=== PATIENT | male | born 1990 | race Caucasian/White ===

== ENCOUNTER 2020-04-09 09:46 | Outpatient (REF) | payer OTHER, SELFPAY ==
[2020-04-09 11:15] LABS: MANUAL DIFF FLAG NO
[2020-04-09 11:38] LABS: Basophils Percent Auto 0.7 % (0-2); Eosinophils Absolute Auto 0.1 X10*3/uL (0.0-0.4); Eosinophils Percent Auto 1.1 % (0-4); Hematocrit 45.3 % (42-52); Imm Gran Abs Auto 0.01 X10*3/uL (0.00-0.03); Imm Gran Pct Auto 0.2 % (0.0-0.4); Lymphocytes Absolute Auto 1.1 X10*3/uL (1.2-4.9); Lymphocytes Percent Auto 19.4 % (20-40); Mean Corpuscular HGB Conc 33.1 g/dl (31.0-36.0); Mean Corpuscular Hemoglobin 29.9 pg (27.0-33.0); Mean Corpuscular Volume 90.2 fL (80-98); Mean Platelet Volume 11.4 fL (9.4-12.4); Monocytes Absolute Auto 0.5 X10*3/uL (0.1-1.2); Monocytes Percent Auto 8.8 % (2-11); Neutrophils Absolute Auto 3.8 X10*3/uL (2.0-8.3); Neutrophils Percent Auto 69.8 % (45-73); Platelet Count 221 X10*3/uL (160-400); Red Blood Count 5.02 X10*6/uL (4.60-5.80); Red Cell Distribution Width 12.1 % (11.0-16.0); White Blood Count 5.5 X10*3/uL (4.8-10.8)
[2020-04-09 11:49] LABS: Alanine Aminotransferase 37 U/L (0-40); Albumin Level 4.6 g/dL (3.5-5.0); Alkaline Phosphatase 41 U/L (39-117); Anion Gap 13 (12-20); Aspartate Amino Transferase 35 U/L (5-37); Bilirubin Total 0.5 mg/dL (0.0-1.0); Blood Urea Nitrogen 16 mg/dL (9-16); Calcium 9.2 mg/dL (8.4-10.2); Carbon Dioxide 29 mmol/L (22-29); Chloride 103 mmol/L (96-108); Cholesterol 210 mg/dL; Estimated Glomerular Filt Rate > 60; Glucose Fasting 97 mg/dL (60-99); HDL Cholesterol 65 mg/dL; Iron 71 mcg/dL (45-160); LDL Cholesterol Calculated 135 mg/dl; Percent Iron Saturation 24 % (15-50); Sodium 140 mmol/L (135-145); Total Iron Binding Capacity 290 mcg/dL (228-428); Total Protein 7.2 g/dL (6.5-8.0); Triglycerides 51 mg/dL; Unsaturated Iron Binding 219 ug/dL
[2020-04-09 12:12] LABS: HBS Num1 72.17 mIU/mL (0-7.99); HBc Num1 0.19 S/CO (0.00-0.79); HIV AB/AG Nonreactive (Nonreactive); HIV Num 1 0.09 S/CO (0.00-0.99); Hepatitis B Core Antibody Nonreactive (Nonreactive); ~HepC Num1 0.12 S/CO (0.00-0.79); ~Hepatitis B Surface Antibody REACTIVE (Nonreactive); ~Hepatitis C Antibody Nonreactive (Nonreactive)
[2020-04-09 12:13] LABS: Syphilis Screen Nonreactive (Nonreactive)
[2020-04-09 12:14] LABS: TSH reflex Free T4 1.27 mIU/mL (0.32-4.0)
[2020-04-09 12:30] LABS: Folate > 20.0 ng/mL (> or = 4.0); Vitamin B12 972 pg/mL (200-900)
[2020-04-09 12:31] LABS: HBsAGNum1 0.31 S/CO (0.00-0.99); Hepatitis B Surface Antigen Negative (Negative)
== END 2020-04-09 09:47 | disposition home or self-care (01) ==
LOC: HO.LAB 09:46
PROVIDERS: PCP Physician Assistant; Visit Provider Physician Assistant
DX: D50.9 Iron deficiency anemia, unspecified (principal); Z11.3 Encounter for screening for infections with a predominantly sexual mode of transmission; Z13.29 Encounter for screening for other suspected endocrine disorder; Z13.1 Encounter for screening for diabetes mellitus; Z13.220 Encounter for screening for lipoid disorders; Z13.0 Encounter for screening for diseases of the blood and blood-forming organs and certain disorders involving the immune mechanism
CPT/HCPCS: 36415; 80053; 80061; 82607; 82746; 83540; 84443; 85025; 86704; 86706; 86780; 86803; 87340; 87389

== ENCOUNTER 2021-08-01 12:54 | Emergency (ER) | payer OTHER, SELFPAY ==
--- NOTE | 2021-08-01 | ECG_ITS ---
Test Reason : CHEST PAIN Blood Pressure : / mmHG Vent. Rate : 070 BPM Atrial Rate : 070 BPM P-R Int : 156 ms QRS Dur : 098 ms QT Int : 338 ms P-R-T Axes : 067 041 014 degrees QTc Int : 365 ms Normal sinus rhythm Normal ECG No previous ECGs available Referred By: Generic ED Physician Electronically Signed By:Asael Arzate
--- NOTE | ~2021-08-01 | XR_ITS ---
EXAMINATION: XR CHEST CLINICAL INFORMATION: Chest pain COMPARISON: None TECHNIQUE: 2 views of the chest were obtained. FINDINGS: Lungs are well-inflated and clear. Trachea is midline in position. No interstitial disease, consolidation or mass. No pleural effusion or pneumothorax. Cardiac silhouette and pulmonary vessels are normal in size. The mediastinum and nicole have normal contour. The visualized bones and upper abdomen are unremarkable. XR/XR chest 2V IMPRESSION: No acute cardiopulmonary abnormality.
[2021-08-01 13:01] VITALS: BP 127/67; PULSE 80; RESP 16; TEMP 36.5; O2SAT 97; BMI 25.7
[2021-08-01 13:20] LABS: MANUAL DIFF FLAG NO
[2021-08-01 13:30] LABS: Eosinophils Absolute Auto 0.1 X10*3/uL (0.0-0.4); Eosinophils Percent Auto 3.1 % (0-4); Hematocrit 43.9 % (42.0-52.0); Imm Gran Abs Auto 0.01 X10*3/uL (0.00-0.03); Imm Gran Pct Auto 0.2 % (0.0-0.4); Lymphocytes Absolute Auto 1.1 X10*3/uL (1.2-4.9); Lymphocytes Percent Auto 26.8 % (20-40); Mean Corpuscular HGB Conc 34.2 g/dl (31.0-36.0); Mean Corpuscular Hemoglobin 29.9 pg (27.0-33.0); Mean Corpuscular Volume 87.5 fL (80.0-98.0); Mean Platelet Volume 10.3 fL (9.4-12.4); Monocytes Absolute Auto 0.4 X10*3/uL (0.1-1.2); Monocytes Percent Auto 8.9 % (2-11); Neutrophils Absolute Auto 2.5 x10*3/uL (2.0-8.3); Platelet Count 195 X10*3/uL (160-400); Red Blood Count 5.02 X10*6/uL (4.60-5.80); Red Cell Distribution Width 12.1 % (11.0-16.0); White Blood Count 4.2 X10*3/uL (4.8-10.8)
[2021-08-01 13:39] LABS: D Dimer High Sensitivity < 150 NG/ML
[2021-08-01 13:40] LABS: Anion Gap 11 (12-20); Blood Urea Nitrogen 18 mg/dL (9-16); Calcium 9.4 mg/dL (8.4-10.2); Carbon Dioxide 24 mmol/L (22-29); Chloride 106 mmol/L (96-108); Creatinine Clr Calc Pharmacy 105.5; Estimated Glomerular Filt Rate > 60; Glucose Random 90 mg/dL (60-115); Potassium 4.4 mmol/L (3.3-5.1); Sodium 137 mmol/L (135-145)
[2021-08-01 13:48] LABS: Troponin-I High Sensitivity < 3.5 ng/L (<3.5-35.0)
--- NOTE | 2021-08-01 16:14 | ED_ITS ---
HPI - Chest Pain General Chief Complaint: Chest Pain Stated Complaint: chest pains Source: patient Mode of arrival: ambulatory Limitations: no limitations History of Present Illness HPI narrative: 30-year-old male presents with 2 weeks of mid substernal chest pain radiating to the left chest wall. States that pain increases on inspiration, with stretching and with weightlifting. Stated that he felt ill for a few days prior to the chest pain. Illness has resolved however he remains fatigued with this intermit tent pain. MD complaint: chest pain Onset (ago): week(s) (2) Timing of current episode: episodic Prior episodes: No Onset: during rest and during exertion Pain location: substernal and left chest Pain radiation: none Severity: moderate Pain scale (0-10): 6 Quality: tightness, aching, sharp and burning Relieving factors: nothing Exacerbating factors: exertion, inspiration, palpation and movement Context: recent illness Associated symptoms: dyspnea Treatment prior to arrival: none Risk Factors Coronary artery disease risk factors: none Thoracic aortic dissection risk factors: connective tissue disease (arotitis) Related Data Home Medications Medication Instructions Recorded Confirmed No Known Home Meds 05/19/21 05/19/21 Previous Rx's Medication Instructions Recorded hydrocortisone valerate 0.2 % 1 appl TOPICAL BID PRN 15 Days #45 05/19/21 topical cream g Allergies Allergy/AdvReac Type Severity Reaction Status Date / Time No Known Allergies Allergy Verified 05/19/21 08:18 [No Known Allergies*] Review of Systems Review of Systems: Constitutional: No Weight loss, No Fever, No Chills, No Night Sweats, No Fatigue, No Malaise ENT/Mouth: No Hearing loss, No Ear Pain, No Nasal Congestion, No Sinus Pain, No Hoarseness, No sore throat, No Rhinorrhea, No Swallowing Difficulty Eyes: No Eye Pain, No Swelling, No Redness, No Foreign Body, No Discharge, No Vision Changes Cardiovascular: pos Chest Pain, pos SOB, no Dyspnea on Exertion, No Orthopnea, No Edema, No Palpitations Respiratory: No Cough, No Sputum, No Wheezing, No Smoke Exposure, No Dyspnea Gastrointestinal: No Nausea, No Vomiting, No Diarrhea, No abdominal Pain, No Hematochezia, No Melena Genitourinary: No irregular bleeding, No Dysuria, No Urinary Frequency, No Hematuria, No Urinary Incontinence, No Urgency, No Flank Pain, No Urinary Flow Changes, No Hesitancy Musculoskeletal: No joint pain, No Myalgias, No Joint Swelling Skin: No Skin Lesions, No rash Neuro: No Weakness, No Numbness, No Paresthesias, No Loss of Consciousness, No Dizziness, No Headache Psych: No Anxiety/Panic, No Depression, No SI/HI/AH/VH Heme/Lymph: No Bruising, No Bleeding,No Lymphadenopathy Endocrine: No Polyuria, No Polydipsia, No Temperature Intolerance Yes all other systems are reviewed and are negative [facility] Past Medical History Attestation statement: The following information was validated with the patient. Source: old records reviewed Medical History Tricuspid regurgitation Family History Family History Father No problems noted. Mother Substance use disorder Social History Social History Housing: Apartment Alcohol intake: current Alcohol intake frequency: a few times a month Alcohol type: wine Patient Tobacco Use Status: Never used Tobacco e-Cigarette/Vaping Use: Never Used Second Hand Smoke Exposure: No Substance Use Type: Marijuana Advance Directives: No Advance Directives Information Provided: No service: No Current occupational status: employed Current occupation: Student [employer] Current occupational exposures/hazards: No Physical Exam Vital Signs: Vital Signs: Last Vital Signs Temp 97.7 F 08/01/21 13:01 Pulse 71 08/01/21 17:22 Resp 18 08/01/21 17:22 BP 121/73 08/01/21 17:22 Pulse Ox 97 08/01/21 17:22 BMI result Body Mass Index 25.7 Appearance: Alert. Oriented X3. No acute distress. Eyes: Pupils equal, round and reactive to light. Sclera nonicteric. ENT: Pharynx normal. Moist mucous membranes. Neck: Normal inspection. Neck supple. CVS: Normal heart rate and rhythm. Apical pulse equal to pulses to extremities. S1-S2. No murmurs gallops or rubs. Reproducible chest pain to palpation to the left sternal wall midclavicular line. Respiratory: No respiratory distress. Lung sounds clear to auscultation all lobes. Abdomen: Soft and nontender. No CVA tenderness. Skin: Skin warm and dry. Normal skin color. Normal skin turgor. Extremities: No lower extremity edema. Strength 5/5 to all extremities. Gait well-balanced well coordinated. Neuro: No motor deficit. No sensory deficit. Cranial nerves 2-12 intact. Course Course Course Narrative: 30-year-old male presents with 2 weeks of chest pain, shortness breath, fatigue. Pain is reproducible, started after a mild illness that had resolved however the intermittent chest pain still remains. Labs drawn while patient was in the emergency department waiting room. Unremarkable. EKG normal sinus. Chest x-ray is negative. D-dimer is negative. Will add on COVID and influenza screen. 1705 COVID influenza negative. Plan of care is for patient to follow-up with his primary care physician for suspected costochondritis versus musculoskeletal strain. Patient verbalized understanding of and agrees to plan of care to discharge home. Verbalized understanding of signs and symptoms indicating need for emergent intervention MDM - Chest Pain Differential Diagnosis Differential diagnosis: Likely fracture of rib, pneumothorax, stable angina, unstable angina pectoris, atypical chest pain, st elevation myocardial infarction, costochondritis and chest pain Medical Records Data Attestation: I reviewed the patient's medical records. Lab Data Attestation: I reviewed the patient's lab results. Result diagrams: 08/01/21 13:17 08/01/21 13:17 Labs: Lab Results 08/01/21 08/01/21 08/01/21 Range/Units 13:16 13:17 13:17 WBC 4.2 L (4.8-10.8) X10*3/uL RBC 5.02 (4.60-5.80) X10*6/uL Hgb 15.0 (14.0-18.0) g/dl Hct 43.9 (42.0-52.0) % MCV 87.5 (80.0-98.0) fL MCH 29.9 (27.0-33.0) pg MCHC 34.2 (31.0-36.0) g/dl RDW 12.1 (11.0-16.0) % Plt Count 195 (160-400) X10*3/uL MPV 10.3 (9.4-12.4) fL Immature Gran % (Auto) 0.2 (0.0-0.4) % Neut % (Auto) 60.0 (45-73) % Lymph % (Auto) 26.8 (20-40) % Kidder % (Auto) 8.9 (2-11) % Eos % (Auto) 3.1 (0-4) % Baso % (Auto) 1.0 (0-2) % Lymph # (Auto) 1.1 L (1.2-4.9) X10*3/uL Kidder # (Auto) 0.4 (0.1-1.2) X10*3/uL Eos # (Auto) 0.1 (0.0-0.4) X10*3/uL Baso # (Auto) 0.0 (0.0-0.2) X10*3/uL Abs Immat Gran (auto) 0.01 (0.00-0.03) X10*3/uL Absolute Neuts (auto) 2.5 (2.0-8.3) x10*3/uL Absolute Nucleated RBC 0.000 (0.0-0.012) X10*3/uL Nucleated RBC % (auto) 0.0 (0.0-0.2) /100WBC D-Dimer High Sensitivty < 150 NG/ML Sodium (135-145) mmol/L Potassium (3.3-5.1) mmol/L Chloride (96-108) mmol/L Carbon Dioxide (22-29) mmol/L Anion Gap (12-20) BUN (9-16) mg/dL Creatinine (0.5-1.4) mg/dL Estim Creat Clear Calc Estimated GFR Random Glucose (60-115) mg/dL Calcium (8.4-10.2) mg/dL Troponin I High Sens < 3.5 (<3.5-35.0) ng/L COVID-19 (LYNN) (Negative) COVID-19 Clin Com Influenza Type A (NABILA) (Negative) Influenza Type B (NABILA) (Negative) Influenza A & B Note 08/01/21 08/01/21 08/01/21 Range/Units 13:17 16:27 16:27 WBC (4.8-10.8) X10*3/uL RBC (4.60-5.80) X10*6/uL Hgb (14.0-18.0) g/dl Hct (42.0-52.0) % MCV (80.0-98.0) fL MCH (27.0-33.0) pg MCHC (31.0-36.0) g/dl RDW (11.0-16.0) % Plt Count (160-400) X10*3/uL MPV (9.4-12.4) fL Immature Gran % (Auto) (0.0-0.4) % Neut % (Auto) (45-73) % Lymph % (Auto) (20-40) % Kidder % (Auto) (2-11) % Eos % (Auto) (0-4) % Baso % (Auto) (0-2) % Lymph # (Auto) (1.2-4.9) X10*3/uL Kidder # (Auto) (0.1-1.2) X10*3/uL Eos # (Auto) (0.0-0.4) X10*3/uL Baso # (Auto) (0.0-0.2) X10*3/uL Abs Immat Gran (auto) (0.00-0.03) X10*3/uL Absolute Neuts (auto) (2.0-8.3) x10*3/uL Absolute Nucleated RBC (0.0-0.012) X10*3/uL Nucleated RBC % (auto) (0.0-0.2) /100WBC D-Dimer High Sensitivty NG/ML Sodium 137 (135-145) mmol/L Potassium 4.4 (3.3-5.1) mmol/L Chloride 106 (96-108) mmol/L Carbon Dioxide 24 (22-29) mmol/L Anion Gap 11 L (12-20) BUN 18 H (9-16) mg/dL Creatinine 1.07 (0.5-1.4) mg/dL Estim Creat Clear Calc 105.5 Estimated GFR > 60 Random Glucose 90 (60-115) mg/dL Calcium 9.4 (8.4-10.2) mg/dL Troponin I High Sens (<3.5-35.0) ng/L COVID-19 (LYNN) Negative (Negative) COVID-19 Clin Com See Note Influenza Type A (NABILA) Negative (Negative) Influenza Type B (NABILA) Negative (Negative) Influenza A & B Note See Note Imaging Data Chest x-ray: Attestation: I personally reviewed and interpreted this imaging study as follows: Radiologist's impression: EXAMINATION: XR CHEST CLINICAL INFORMATION: Chest pain COMPARISON: None TECHNIQUE: 2 views of the chest were obtained. FINDINGS: Lungs are well-inflated and clear. Trachea is midline in position. No interstitial disease, consolidation or mass. No pleural effusion or pneumothorax.? Cardiac silhouette and pulmonary vessels are normal in size. The mediastinum and nicole have normal contour. The visualized bones and upper abdomen are unremarkable. XR/XR chest 2V IMPRESSION: No acute cardiopulmonary abnormality. ? ECG Data ECG #1: Attestation: I personally reviewed and interpreted this ECG as follows: ECG interpretation date: 08/01/21 ECG interpretation time: 13:03 Prior ECG tracings: not available for review Interpretation: Vent. rate 70 BPM CA interval 156 ms QRS duration 98 ms QT/QTc 338/365 ms P-R-T axes 67 41 14 Normal sinus rhythm Normal ECG No previous ECGs available Discharge Plan Discharge Clinical Impression: Atypical chest pain, Costalchondritis Patient Disposition: Home, Self-Care Instructions: Costochondritis (ED), Noncardiac Chest Pain (ED) Additional Instructions: You were evaluated for 2 weeks of chest pain and fatigue. Lab values are within normal limits. EKG is normal sinus. D-dimer is negative. Cardiac enzymes are negative. COVID and influenza tests are negative. This could be costochondritis versus musculoskeletal strain. Please use ibuprofen as needed for pain management. Follow-up with primary care physician this week for further evaluation Thank you for choosing this emergency department for evaluation. Please follow-up with primary care physician as needed. Return to the emergency department for any new, concerning, or worsening symptoms. Prescriptions: No Action No Known Home Meds 0RF hydrocortisone valerate 0.2 % cream 1 appl topical BID PRN (Reason: skin irritation) 15 Days Qty: 45 0RF Referrals: Junior Harrington PA-C [Primary Care Provider] - Interventions: ED Discharge Assessment Last Done: 08/01/21 17:24 Discharge Date/Time: 08/01/21 17:25
[2021-08-01 16:50] LABS: COVID-19 Test Negative (Negative)
[2021-08-01 16:51] LABS: IDNOW Serial# 16C4AD1C; Influenza A Negative (Negative); Influenza B2 Negative (Negative)
[2021-08-01 17:22] VITALS: BP 121/73; PULSE 71; RESP 18; O2SAT 97
== END 2021-08-01 17:25 | disposition home or self-care (01) ==
PROVIDERS: Nurse Practitioner Family; Emergency Provider Internal Medicine; PCP Physician Assistant
DX: M94.0 Chondrocostal junction syndrome [Tietze] (principal); R07.89 Other chest pain; Z20.822 Contact with and (suspected) exposure to COVID-19
CPT/HCPCS: 36415; 71046; 80048; 84484; 85025; 85379; 87502; 87635; 93005; 99283; 99284

== ENCOUNTER 2021-11-30 10:00 | Emergency (ER) | payer OTHER, SELFPAY ==
[2021-11-30 10:04] VITALS: BP 127/68; PULSE 65; RESP 16; TEMP 36.8; O2SAT 99; BMI 26.5
--- NOTE | 2021-11-30 10:28 | ED_ITS ---
HPI - Nausea/Vomiting/Diarrhea General Chief complaint: Nausea/Vomiting/Diarrhea Stated complaint: Abd pain Time Seen by Provider: 11/30/21 10:13 Source: patient Mode of arrival: ambulatory Limitations: no limitations History of Present Illness HPI Narrative: Abdominal pain and diarrhea for 2 months. No fever, unclear if it is related to diet. Soft watery, 3 times a day, question of blood. No prior issues has not been worked up. Patient works weekdays and he is here for that reason today. MD elicited complaint: diarrhea and abdominal pain Onset (ago): month(s) Description of diarrhea: watery and semi-solid Associated nausea: No Associated abdominal pain: Yes Location of pain: epigastric Severity: mild Quality: sharp Exacerbating factors: eating Associated symptoms: denies other symptoms Related Data Previous Rx's Medication Instructions Recorded hydrocortisone valerate 0.2 % 1 appl topical BID PRN skin 05/19/21 topical cream irritation 15 days #45 grams levofloxacin 750 mg tablet 750 mg PO DAILY #3 tabs 11/30/21 Allergies Allergy/AdvReac Type Severity Reaction Status Date / Time No Known Allergies Allergy Verified 05/19/21 08:18 [No Known Allergies*] Review of Systems Constitutional: Constitutional: Reports no additional constitutional co mplaints Eyes: Eyes: Reports no additional eye complaints ENT: Denies dizziness Cardiovascular: Cardiovascular: Reports no additional cardiovascular complaints Respiratory: Respiratory: Reports as per HPI Gastrointestinal: Gastrointestinal: Denies nausea Musculoskeletal: Musculoskeletal: Reports no additional musculoskeletal complaints Integumentary/Breasts: Skin/Breast: Denies rash Neurologic: Reports system reviewed and no additional complaints, except as documented, Denies dizziness and Denies Sensory deficit (Neuro) Psychiatric: Psychiatric: Denies anxiety [facility] Past Medical History Medical History Tricuspid regurgitation Family History Family History Father No problems noted. Mother Substance use disorder Social History Social History Housing: Apartment Alcohol intake: current Alcohol intake frequency: holidays/special occasions only Alcohol type: wine Patient Tobacco Use Status: Never used Tobacco e-Cigarette/Vaping Use: Never Used Second Hand Smoke Exposure: No Use of substances other than those prescribed or required for medical reasons: No Substance Use Type: Marijuana Advance Directives: No Advance Directives Information Provided: No service: No Current occupational status: employed Current occupation: Student [employer] Current occupational exposures/hazards: No Physical Exam Vital Signs: Vital Signs: Last Vital Signs Temp 98.2 F 11/30/21 12:59 Pulse 65 11/30/21 12:59 Resp 16 11/30/21 12:59 BP 114/68 11/30/21 12:59 Pulse Ox 97 11/30/21 12:59 O2 Del Method 11/30/21 12:59 BMI result Body Mass Index 26.5 Neuro: Sensory Exam: No Sensory deficit (Neuro) Course Reevaluation(s) Reevaluation #1: GI panel positive for Enteropathogenic Ecoli. Since the patient has had diarrhea for so long I will treat him with levaquin Time: 13:39 MDM - Nausea/Vomiting/Diarrhea Lab Data Result diagrams: 11/30/21 11:05 11/30/21 11:05 Labs: Lab Results 11/30/21 11/30/21 11/30/21 Range/Units 11:01 11:05 11:05 WBC 4.7 L (4.8-10.8) X10*3/uL RBC 5.14 (4.60-5.80) X10*6/uL Hgb 15.2 (14.0-18.0) g/dl Hct 44.9 (42.0-52.0) % MCV 87.4 (80.0-98.0) fL MCH 29.6 (27.0-33.0) pg MCHC 33.9 (31.0-36.0) g/dl RDW 11.9 (11.0-16.0) % Plt Count 181 (160-400) X10*3/uL MPV 10.6 (9.4-12.4) fL Immature Gran % (Auto) 0.2 (0.0-0.4) % Neut % (Auto) 66.7 (45-73) % Lymph % (Auto) 22.2 (20-40) % Dubois % (Auto) 7.7 (2-11) % Eos % (Auto) 1.9 (0-4) % Baso % (Auto) 1.3 (0-2) % Lymph # (Auto) 1.0 L (1.2-4.9) X10*3/uL Dubois # (Auto) 0.4 (0.1-1.2) X10*3/uL Eos # (Auto) 0.1 (0.0-0.4) X10*3/uL Baso # (Auto) 0.1 (0.0-0.2) X10*3/uL Abs Immat Gran (auto) 0.01 (0.00-0.03) X10*3/uL Absolute Neuts (auto) 3.1 (2.0-8.3) x10*3/uL Absolute Nucleated RBC 0.000 (0.0-0.012) X10*3/uL Nucleated RBC % (auto) 0.0 (0.0-0.2) /100WBC Sodium 140 (135-145) mmol/L Potassium 4.1 (3.3-5.1) mmol/L Chloride 106 (96-108) mmol/L Carbon Dioxide 26 (22-29) mmol/L Anion Gap 12 (12-20) BUN 14 (9-16) mg/dL Creatinine 1.26 (0.5-1.4) mg/dL Estim Creat Clear Calc 86.1 Estimated GFR > 60 Random Glucose 112 (60-115) mg/dL Calcium 9.1 (8.4-10.2) mg/dL Total Bilirubin 0.9 (0.0-1.0) mg/dL AST 23 (5-37) U/L ALT 21 (0-40) U/L Alkaline Phosphatase 47 (39-117) U/L Total Protein 7.1 (6.5-8.0) g/dL Albumin 4.5 (3.5-5.0) g/dL Stool Leukocytes, Qual (NEGATIVE) Stl C. cayetanensis PCR Not Detected (Not Detect.) Stool Rotavirus A PCR Not Detected (Not Detect.) Stl Adenov F 40/41 PCR Not Detected (Not Detect.) Stool Astrovirus (PCR) Not Detected (Not Detect.) Stool Campylobacter PCR Not Detected (Not Detect.) Stool Cryptosporidium PCR Not Detected (Not Detect.) Stl Sh Tox Pr E STEC PCR Not Detected (Not Detect.) Stool E coli O157 PCR Not Detected (Not Detect.) Stl Enterotoxigenic E PCR Not Detected (Not Detect.) Stool EPEC (PCR) Detected A (Not Detect.) Stool EAEC (PCR) Not Detected (Not Detect.) Stl E. histolytica PCR Not Detected (Not Detect.) Stool Giardia Lamblia PCR Not Detected (Not Detect.) Stl P. shigelloides PCR Not Detected (Not Detect.) Stool Salmonella PCR Not Detected (Not Detect.) Stool Sapovirus (PCR) Not Detected (Not Detect.) Stl Shigella/EIEC PCR Not Detected (Not Detect.) St Y.enterocolitica PCR Not Detected (Not Detect.) Stool Vibrio (PCR) Not Detected (Not Detect.) Stl Vibrio cholerae PCR Not Detected (Not Detect.) Stl Norovirus GI/GII PCR Not Detected (Not Detect.) 11/30/21 Range/Units 11:17 WBC (4.8-10.8) X10*3/uL RBC (4.60-5.80) X10*6/uL Hgb (14.0-18.0) g/dl Hct (42.0-52.0) % MCV (80.0-98.0) fL MCH (27.0-33.0) pg MCHC (31.0-36.0) g/dl RDW (11.0-16.0) % Plt Count (160-400) X10*3/uL MPV (9.4-12.4) fL Immature Gran % (Auto) (0.0-0.4) % Neut % (Auto) (45-73) % Lymph % (Auto) (20-40) % Dubois % (Auto) (2-11) % Eos % (Auto) (0-4) % Baso % (Auto) (0-2) % Lymph # (Auto) (1.2-4.9) X10*3/uL Dubois # (Auto) (0.1-1.2) X10*3/uL Eos # (Auto) (0.0-0.4) X10*3/uL Baso # (Auto) (0.0-0.2) X10*3/uL Abs Immat Gran (auto) (0.00-0.03) X10*3/uL Absolute Neuts (auto) (2.0-8.3) x10*3/uL Absolute Nucleated RBC (0.0-0.012) X10*3/uL Nucleated RBC % (auto) (0.0-0.2) /100WBC Sodium (135-145) mmol/L Potassium (3.3-5.1) mmol/L Chloride (96-108) mmol/L Carbon Dioxide (22-29) mmol/L Anion Gap (12-20) BUN (9-16) mg/dL Creatinine (0.5-1.4) mg/dL Estim Creat Clear Calc Estimated GFR Random Glucose (60-115) mg/dL Calcium (8.4-10.2) mg/dL Total Bilirubin (0.0-1.0) mg/dL AST (5-37) U/L ALT (0-40) U/L Alkaline Phosphatase (39-117) U/L Total Protein (6.5-8.0) g/dL Albumin (3.5-5.0) g/dL Stool Leukocytes, Qual NEGATIVE (NEGATIVE) Stl C. cayetanensis PCR (Not Detect.) Stool Rotavirus A PCR (Not Detect.) Stl Adenov F 40/41 PCR (Not Detect.) Stool Astrovirus (PCR) (Not Detect.) Stool Campylobacter PCR (Not Detect.) Stool Cryptosporidium PCR (Not Detect.) Stl Sh Tox Pr E STEC PCR (Not Detect.) Stool E coli O157 PCR (Not Detect.) Stl Enterotoxigenic E PCR (Not Detect.) Stool EPEC (PCR) (Not Detect.) Stool EAEC (PCR) (Not Detect.) Stl E. histolytica PCR (Not Detect.) Stool Giardia Lamblia PCR (Not Detect.) Stl P. shigelloides PCR (Not Detect.) Stool Salmonella PCR (Not Detect.) Stool Sapovirus (PCR) (Not Detect.) Stl Shigella/EIEC PCR (Not Detect.) St Y.enterocolitica PCR (Not Detect.) Stool Vibrio (PCR) (Not Detect.) Stl Vibrio cholerae PCR (Not Detect.) Stl Norovirus GI/GII PCR (Not Detect.) Discharge Plan Discharge Clinical Impression: Acute infectious diarrhea Patient Disposition: Home, Self-Care Instructions: Gastroenteritis (ED) Prescriptions: New levofloxacin 750 mg tablet 750 mg PO DAILY Qty: 3 0RF No Action hydrocortisone valerate 0.2 % cream 1 appl topical BID PRN (Reason: skin irritation) 15 Days Qty: 45 0RF Referrals: Junior Harrington PA-C [Primary Care Provider] - 1 week
--- NOTE | 2021-11-30 10:48 | PC.NURSE ---
pt a/o x 3 no sob/marjorie noted skin pink warm dry speaks in full sentences. heart sounds regular. amb (i) gait steady. bs + x 4 quad. pt c/o 3/10 abd pain with diarrhea.
[2021-11-30 11:08] LABS: MANUAL DIFF FLAG NO
[2021-11-30 11:09] LABS: Basophils Absolute Auto 0.1 X10*3/uL (0.0-0.2); Basophils Percent Auto 1.3 % (0-2); Eosinophils Absolute Auto 0.1 X10*3/uL (0.0-0.4); Eosinophils Percent Auto 1.9 % (0-4); Hematocrit 44.9 % (42.0-52.0); Hemoglobin 15.2 g/dl (14.0-18.0); Imm Gran Abs Auto 0.01 X10*3/uL (0.00-0.03); Imm Gran Pct Auto 0.2 % (0.0-0.4); Lymphocytes Percent Auto 22.2 % (20-40); Mean Corpuscular HGB Conc 33.9 g/dl (31.0-36.0); Mean Corpuscular Hemoglobin 29.6 pg (27.0-33.0); Mean Corpuscular Volume 87.4 fL (80.0-98.0); Mean Platelet Volume 10.6 fL (9.4-12.4); Monocytes Absolute Auto 0.4 X10*3/uL (0.1-1.2); Monocytes Percent Auto 7.7 % (2-11); Neutrophils Absolute Auto 3.1 x10*3/uL (2.0-8.3); Neutrophils Percent Auto 66.7 % (45-73); Platelet Count 181 X10*3/uL (160-400); Red Blood Count 5.14 X10*6/uL (4.60-5.80); Red Cell Distribution Width 11.9 % (11.0-16.0); White Blood Count 4.7 X10*3/uL (4.8-10.8)
[2021-11-30 11:27] LABS: Leukocytes Stool Qualitative NEGATIVE (NEGATIVE)
[2021-11-30 11:33] LABS: Alanine Aminotransferase 21 U/L (0-40); Albumin Level 4.5 g/dL (3.5-5.0); Alkaline Phosphatase 47 U/L (39-117); Anion Gap 12 (12-20); Aspartate Amino Transferase 23 U/L (5-37); Bilirubin Total 0.9 mg/dL (0.0-1.0); Blood Urea Nitrogen 14 mg/dL (9-16); Calcium 9.1 mg/dL (8.4-10.2); Carbon Dioxide 26 mmol/L (22-29); Chloride 106 mmol/L (96-108); Creatinine Clr Calc Pharmacy 86.1; Estimated Glomerular Filt Rate > 60; Glucose Random 112 mg/dL (60-115); Potassium 4.1 mmol/L (3.3-5.1); Sodium 140 mmol/L (135-145); Total Protein 7.1 g/dL (6.5-8.0)
[2021-11-30 12:59] VITALS: BP 114/68; PULSE 65; RESP 16; TEMP 36.8; O2SAT 97
[2021-11-30 12:59] LABS: Campylobacter Not Detected (Not Detect.); Cryptosporidium Not Detected (Not Detect.); Cyclospora cayetanensis Not Detected (Not Detect.); E. coli EAEC Not Detected (Not Detect.); E. coli ETEC Not Detected (Not Detect.); E. coli O157 Not Detected (Not Detect.); E. coli STEC Not Detected (Not Detect.); Plesiomonas shigelloides Not Detected (Not Detect.); Salmonella Not Detected (Not Detect.); Shigella sp./EIEC Not Detected (Not Detect.); Vibrio Not Detected (Not Detect.); Vibrio Cholerae Not Detected (Not Detect.); Yersinia enterocolitica Not Detected (Not Detect.)
[2021-11-30 13:00] LABS: Adenovirus F 40/41 Not Detected (Not Detect.); Astrovirus Not Detected (Not Detect.); Entamoeba histolytica Not Detected (Not Detect.); Giardia lamblia Not Detected (Not Detect.); Norovirus GI/GII Not Detected (Not Detect.); Rotavirus A Not Detected (Not Detect.); Sapovirus Not Detected (Not Detect.)
[2021-11-30 13:01] LABS: E. coli EPEC Detected (Not Detect.)
[2021-11-30 14:16] VITALS: BP 113/72; PULSE 60; RESP 16; TEMP 36.9; O2SAT 97
[2021-11-30 14:22] LABS: CDiff Gene PCR NEGATIVE (Negative)
[2021-11-30] MEDS: levoFLOXacin 750 MG TABLET PO (14:22)
== END 2021-11-30 14:28 | disposition home or self-care (01) ==
PROVIDERS: Emergency Provider Emergency Medicine; PCP Physician Assistant
DX: A04.0 Enteropathogenic Escherichia coli infection (principal); R10.9 Unspecified abdominal pain
CPT/HCPCS: 36415; 80053; 85025; 87493; 87507; 89055; 99283; 99284